=== PATIENT | female | born 1945 | race Two or more races ===

== ENCOUNTER 2021-09-19 17:40 | Inpatient (IN) | payer MEDICARE, OTHER ==
[~2021-09-19] VITALS: Ht 149.9 cm; Wt 72.6 kg
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
--- NOTE | 2021-09-19 18:00 | NUR ---
[employer] UNIT # [id number] AT BEDSIDE
--- NOTE | 2021-09-19 18:05 | NUR ---
URINE COLLECTED AND SENT TO LAB
[2021-09-19] MEDS ORDERED: ACETAMINOPHEN ES 500 MG TABLET PO ONE (18:30)
[2021-09-19] MEDS ORDERED: ACETAMINOPHEN ES 500 MG TABLET ONE (18:47)
[2021-09-19 18:57] LABS: BILIRUBIN,URINE NEGATIVE (NEGATIVE); COLOR,URINE YELLOW (YELLOW); LEUKOCYTE ESTERASE ,URINE SMALL (NEGATIVE); NITRITE, URINE NEGATIVE (NEGATIVE); PH,URINE 5.5 (5.0-8.0); PROTEIN,URINE NEGATIVE (NEGATIVE); UGLUCOSE NEGATIVE (NEGATIVE); UROBILINOGEN,URINE 0.2 EU/dL (0.2)
[2021-09-19 19:03] LABS: CALCIUM, SERUM 8.6 mg/dL (8.5-10.1); CARBON DIOXIDE 26 mmol/L (21-32); CHLORIDE 104 mmol/L (98-107); CREATININE 1.2 mg/dL (0.6-1.3); GLUCOSE 114 mg/dL (74-106); POTASSIUM 3.9 mmol/L (3.5-5.1); SODIUM SERUM 137 mmol/L (136-145); UREA NITROGEN, BLOOD 23 mg/dL (7-18)
[2021-09-19 19:10] LABS: ALANINE AMINOTRANSFERASE 20 U/L (12-78); ALBUMIN 3.4 g/dL (3.4-5.0); ALCOHOL, BLOOD < 3 mg/dL (0-0); ALKALINE PHOSPHATASE 96 U/L (46-116); ASPARTATE AMINOTRANSFERASE 15 U/L (15-37); BILIRUBIN,TOTAL 0.6 mg/dL (0.2-1.0); TOTAL PROTEIN, SERUM 7.6 g/dL (6.4-8.2)
[2021-09-19 19:11] LABS: ACETAMINOPHEN < 0 ug/ml (10-30)
[2021-09-19 19:12] LABS: BACTERIA,URINE 1+ /HPF (None Seen); RBC,URINE 0-2 /HPF (0-2); SQUAMOUS EPITHELIAL CELL,UR Few /HPF (None Seen); WBC,URINE 51-80 /HPF (0-3)
[2021-09-19 19:12] LABS: CREATINE KINASE, TOTAL < 7 U/L (26-192)
[2021-09-19] MEDS ORDERED: CEFTRIAXONE 1 G in IV D5W 50 ML IV ONE (20:00)
[2021-09-19] MEDS ORDERED: ENOXAPARIN SODIUM 60 MG/0.6 ML DISP.SYRIN SQ ONE ×2 (20:00→20:30)
[2021-09-19 20:21] LABS: BASOPHILS # (AUTO) 0.1 K/uL (0.0-0.2); BASOPHILS % (AUTO) 1.3 % (0.0-2.0); EOSINOPHILS % (AUTO) 0.8 % (0.0-6.0); HEMATOCRIT 30 % (33-45); HEMOGLOBIN 9.5 g/dL (11.5-14.8); LYMPHOCYTES # (AUTO) 1.8 K/uL (0.8-4.8); LYMPHOCYTES % (AUTO) 28.6 % (20.0-44.0); MEAN CORPUSCULAR HGB CONC 32 g/dl (31.0-36.0); MEAN CORPUSCULAR VOLUME 82 fL (82-100); MONOCYTES # (AUTO) 0.6 K/uL (0.1-1.30); MONOCYTES % (AUTO) 8.8 % (2.0-12.0); NEUTROPHILS # (AUTO) 3.8 K/uL (1.8-8.9); NEUTROPHILS % (AUTO) 60.5 % (43.0-81.0); PLATELET COUNT (AUTO) 276 K/uL (150-450); RED BLOOD CELL COUNT(AUTO) 3.61 MIL/uL (4.0-5.2); WHITE BLOOD COUNT (AUTO) 6.3 K/uL (4.3-11.0)
--- NOTE | 2021-09-19 20:25 | NUR ---
Jag delgado in [facility] - 09/19/21 at 2108 by LORIE TAMMIE CLIFFORD
--- NOTE | 2021-09-19 20:26 | NUR ---
EPIC PANEL PAGED
[2021-09-19] MEDS ORDERED: CEFTRIAXONE 1 G VIAL ONE (20:30)
--- NOTE | 2021-09-19 20:45 | NUR ---
IV LINE ESTABLISHED AT L WRIST 22G
--- NOTE | 2021-09-19 21:07 | NUR ---
CALLED FELICIANO PAGED PRABHA CLIFFORD
--- NOTE | 2021-09-19 22:04 | NUR ---
CALLED [facility], SPOKE TO ORTHOPEDIC CAST SPECIALIST #[id number], SENDING UNIT TO TAKE REPORT FROM PT
--- NOTE | 2021-09-19 22:12 | NUR ---
RECEIVED CALL FROM [employer], STATES ALREADY SAW PT AND TOOK REPORT EARLIER ON PT ARRIVAL TO ED
--- NOTE | 2021-09-19 23:47 | NUR ---
called lab to f/u on covid swab
--- NOTE | 2021-09-19 23:56 | NUR ---
COVID SWAB SENT TO LAB
--- NOTE | 2021-09-20 00:31 | NUR ---
ROOM ASSIGNMENT: 310-1 TELE
--- NOTE | 2021-09-20 00:43 | NUR ---
PER LAB, 20 MIN FOR COVID RESULT
--- NOTE | 2021-09-20 01:10 | NUR ---
gave report to caitlyn Covarrubias for kaylie
[2021-09-20 01:25] VITALS: BP 133/86
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
--- NOTE | 2021-09-20 01:38 | NUR ---
molded goods inspector trimmer notes Informed MD for new admission orders.
[2021-09-20] MEDS ORDERED: CLON0.5T4 PO (02:22)
[2021-09-20] MEDS ORDERED: ASPI-866 PO (02:22)
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
--- NOTE | 2021-09-20 03:00 | NUR ---
REMINDED INKER AND OPAQUER MD TO PUT ADMIT ORDERS, STILL PENDING
[2021-09-20 04:00] VITALS: BP 124/75
[2021-09-20] MEDS ORDERED: ONDANSETRON HCL/PF 4 MG/2 ML VIAL IVP PRN (04:00)
[2021-09-20] MEDS ORDERED: Z GUARD REMEDY 2 OZ OINT TP PRN (04:00)
[2021-09-20] MEDS ORDERED: ENOXAPARIN SODIUM 40 MG/0.4 ML DISP.SYRIN SQ SCH (05:00)
[2021-09-20] MEDS: CEPHALEXIN MONOHYDRATE 250 MG CAPSULE PO SCH ×3 (05:03→21:02)
[2021-09-20] MEDS: ACETAMINOPHEN 325 MG TABLET PO PRN ×2 (05:03→15:10)
[2021-09-20] MEDS: IV NS 0.9% 1,000 ML IV PRN (05:06)
[2021-09-20] MEDS ORDERED: SENN15TA PO (06:05)
[2021-09-20 06:16] LABS: THYROID STIMULATING HORMONE 0.976 uIU/mL (0.358-3.74)
--- NOTE | 2021-09-20 06:33 | NUR ---
RN NOTE PATIENT GIVEN TYLENOL PRN FOR PAIN ON LEGS
--- NOTE | 2021-09-20 06:36 | NUR ---
RN CLOSING NOTE PATIENT IN BED, SLEEPING. ABLE TO MAKE NEEDS KNOWN. TOLERATING RA. PATIENT REQUESTING CLONAZEPAM AND EXLAX, MED RECON NOT CONVERTED YET. WILL ENDORSE TO DAY SHIFT NURSE. PATIENT DOES NOT HAVE ANY CHANGES IN CONDITION. NO PAIN AT THIS TIME. PATIENT HAS L WRIST 22 G WITH 75 ML/HR NS. SAFETY MEASURES IMPLEMENTED. ALL NEEDS MET AND ATTENDED. ALL ORDERS CARRIED OUT. WILL ENDORSE TO DAY SHIFT NURSE FOR [place]INA.
[2021-09-20] MEDS ORDERED: HYDR28.316 RC (08:19)
[2021-09-20] MEDS ORDERED: DICL100G34 TP (08:19)
[2021-09-20] MEDS ORDERED: SENN-261 PO (08:19)
[2021-09-20] MEDS ORDERED: DICL50TA9 PO (08:19)
[2021-09-20 08:22] VITALS: BP 142/86
[2021-09-20] MEDS: PANTOPRAZOLE 40 MG TABLET.DR PO SCH (08:43)
[2021-09-20] MEDS: ASPIRIN EC 81 MG TABLET.DR PO SCH (08:43)
[2021-09-20] MEDS: ENOXAPARIN SODIUM 40 MG/0.4 ML DISP.SYRIN SQ SCH (08:46)
[2021-09-20 12:00] VITALS: BP 125/70
[2021-09-20] MEDS: METOPROLOL TARTRATE 25 MG TABLET PO SCH ×2 (12:10→20:38)
[2021-09-20] MEDS: MAGNESIUM HYDROXIDE 30 ML UDC PO PRN (15:10)
[2021-09-20 16:03] VITALS: BP 127/70
--- NOTE | 2021-09-20 16:52 | NUR ---
RN OPENING NOTES PATIENT IN BED RESTING, AWAKE. A/O X3. NO S/S OF PAIN NOTED AT THIS TIME. ON ROOM AIR, NO DISTRESS OR SHORTNESS OF BREATH NOTED. IV ON L WRIST #22G. PATIENT HAS AN EXTERNAL DEVIL TENDER WITH CURRENT READING OF SR AND HR OF 82. FALL AND SAFETY MEASURES IN PLACE, BED ALARM ON, BED IN LOW AND LOCK POSITION, CALL LIGHT AND TABLE WITHIN EASY REACH, SIDE RAILS UP X2. WILL CONTINUE TO MONITOR.
--- NOTE | 2021-09-20 19:34 | NUR ---
RN CLOSING NOTES PATIENT IN BED RESTING, AWAKE. A/O X3-4. NO S/S OF PAIN NOTED AT THIS TIME. ON ROOM AIR, NO DISTRESS OR SHORTNESS OF BREATH NOTED. IV ON L WRIST #22G. PATIENT HAS AN EXTERNAL CRESTER WITH CURRENT READING OF SR WITH PAC AND HR OF 70. FALL AND SAFETY MEASURES IN PLACE, BED ALARM ON, BED IN LOW AND LOCK POSITION, CALL LIGHT AND TABLE WITHIN EASY REACH, SIDE RAILS UP X2. WILL ENDORSE TO SOLVENT STATION ATTENDANT.
--- NOTE | 2021-09-20 19:45 | NUR ---
INSPECTOR METAL FABRICATING OPENING NOTES PATIENT AWAKE IN BED, ALERT/ORIENTED X 4, PT ABLE TO MAKE NEEDS KNOWN. PATIENT DENIES PAIN OR DISCOMFORT AT THIS TIME. PT PRIMARILY TANZANIAN SPEAKING BUT STILL ABLE TO UNDERSTAND AND SPEAK CITIZEN OF [place]. PT STABLE ON RA, NO S/S OF DISTRESS OR SOB NOTED, BREATHING EVEN AND UNLABORED. PT ON EXTERNAL PROCESS VALIDATION ENGINEER READING SINUS RHYTHM, HR: 70. IV ACCESS ON LEFT WRIST #22G RUNNING NS @75 ML/HR. SAFETY MEASURES IN PLACE: CALL LIGHT WITHIN REACH, SIDE RAILS UP X 2, BED LOCKED IN LOW POSITION, BED ALARM ON. WILL CONTINUE TO MONITOR PATIENT
[2021-09-20 20:00] VITALS: BP 108/55
[2021-09-20] MEDS: ATORVASTATIN 10 MG TABLET PO SCH (21:02)
[2021-09-21] VITALS: BP 144/79
[2021-09-21] MEDS: IV NS 0.9% 1,000 ML IV PRN (03:16)
[2021-09-21 04:00] VITALS: BP 125/76
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
[2021-09-21] MEDS: CEPHALEXIN MONOHYDRATE 250 MG CAPSULE PO SCH ×3 (05:06→21:24)
[2021-09-21] MEDS: MAGNESIUM HYDROXIDE 30 ML UDC PO PRN (05:07)
[2021-09-21 05:15] LABS: BASOPHILS # (AUTO) 0.1 K/uL (0.0-0.2); BASOPHILS % (AUTO) 1.1 % (0.0-2.0); EOSINOPHILS % (AUTO) 1.4 % (0.0-6.0); HEMATOCRIT 27 % (33-45); HEMOGLOBIN 9.1 g/dL (11.5-14.8); LYMPHOCYTES # (AUTO) 1.7 K/uL (0.8-4.8); LYMPHOCYTES % (AUTO) 31.2 % (20.0-44.0); MEAN CORPUSCULAR HGB CONC 33 g/dl (31.0-36.0); MEAN CORPUSCULAR VOLUME 81 fL (82-100); MONOCYTES # (AUTO) 0.5 K/uL (0.1-1.30); MONOCYTES % (AUTO) 9.4 % (2.0-12.0); NEUTROPHILS % (AUTO) 56.9 % (43.0-81.0); PLATELET COUNT (AUTO) 272 K/uL (150-450); RED BLOOD CELL COUNT(AUTO) 3.36 MIL/uL (4.0-5.2); WHITE BLOOD COUNT (AUTO) 5.3 K/uL (4.3-11.0)
[2021-09-21 05:34] LABS: ALANINE AMINOTRANSFERASE 21 U/L (12-78); ALBUMIN 3.2 g/dL (3.4-5.0); ALKALINE PHOSPHATASE 89 U/L (46-116); ASPARTATE AMINOTRANSFERASE 15 U/L (15-37); BILIRUBIN,TOTAL 0.6 mg/dL (0.2-1.0); CALCIUM, SERUM 8.4 mg/dL (8.5-10.1); CARBON DIOXIDE 27 mmol/L (21-32); CHLORIDE 104 mmol/L (98-107); CREATININE 1.1 mg/dL (0.6-1.3); GLUCOSE 101 mg/dL (74-106); MAGNESIUM 2.3 mg/dL (1.8-2.4); PHOSPHORUS 3.2 mg/dL (2.5-4.9); POTASSIUM 4.1 mmol/L (3.5-5.1); SODIUM SERUM 137 mmol/L (136-145); TOTAL PROTEIN, SERUM 6.8 g/dL (6.4-8.2); UREA NITROGEN, BLOOD 16 mg/dL (7-18)
--- NOTE | 2021-09-21 06:34 | NUR ---
PHONE BANKER CLOSING NOTE PATIENT AWAKE IN ROOM, ALERT/ORIENTED X 3 BUT FORGETFUL AT TIMES, PT ABLE TO MAKE NEEDS KNOWN. NO SIGNIFICANT CHANGES THROUGHOUT SHIFT. PATIENT STATES ABDOMINAL PAIN HAS IMPROVED SINCE GIVEN MILK OF MAGNESIA BUT HASN'T HAD A BOWEL MOVEMENT. PT STABLE ON RA, NO S/S OF DISTRESS OR SOB NOTED, BREATHING EVEN AND UNLABORED. PT ON EXTERNAL OUTSOLE BEVELER READING SINUS RHYTHM, HR: 89. IV ACCESS ON LEFT WRIST #22G RUNNING NS @75 ML/HR. MEDICATIONS GIVEN ORDERED, PT NEEDS MET THROUGHOUT SHIFT. PATIENT STATES SHE HASN'T BEEN GIVEN HER HOME MEDS, WILL ENDORSE TO DAY SHIFT NURSE TO FOLLOW UP WITH MD ABOUT MED RECON. PT ALSO STATES SHE WANTS TO SPEAK TO MD ABOUT PLAN OF CARE AND HOW LONG SHE WILL BE HERE. SAFETY MEASURES IN PLACE: CALL LIGHT WITHIN REACH, SIDE RAILS UP X 2, BED LOCKED IN LOW POSITION, BED ALARM ON. WILL ENDORSE TO DAY SHIFT NURSE FOR CONTINUITY OF CARE
--- NOTE | 2021-09-21 07:43 | NUR ---
SLOOP CAPTAIN OPENING NOTES RECEIVED PATIENT IN BED, AWAKE, A/O X3. PATIENT ON ROOM AIR; BREATHING EVEN AND UNLABORED; NO SOB NOTED. TELE MONITOR WITH A READING OF SR 82. NO COMPLAINS OF PAIN. IV ACCESS AT L WRIST G #22 RUNNING NS @ 75 MLS/HR. SAFETY PRECAUTIONS IN PLACE; BED IN LOW POSITION AND LOCKED, RAILS UP X2, CALL LIGHT WITHIN REACH. WILL CONTINUE TO MONITOR PATIENT.
[2021-09-21 08:14] VITALS: BP 124/60
[2021-09-21] MEDS: ASPIRIN EC 81 MG TABLET.DR PO SCH (08:40)
[2021-09-21] MEDS: PANTOPRAZOLE 40 MG TABLET.DR PO SCH (08:41)
[2021-09-21] MEDS: METOPROLOL TARTRATE 25 MG TABLET PO SCH ×2 (08:43→21:25)
[2021-09-21] MEDS: ENOXAPARIN SODIUM 40 MG/0.4 ML DISP.SYRIN SQ SCH (08:49)
[2021-09-21] MEDS ORDERED: POLYVINYL ALCOHOL 15 ML BOTTLE EACHEYE PRN (11:00)
[2021-09-21] MEDS ORDERED: DOCUSATE SODIUM 100 MG CAPSULE PO SCH (11:00)
[2021-09-21] MEDS: POLYETHYLENE GLYCOL 3350 17 GM POWD.PACK PO SCH (11:00)
[2021-09-21] MEDS ORDERED: clonazePAM 0.5 MG TABLET PO PRN (11:00)
[2021-09-21] MEDS ORDERED: ASPIRIN EC 81 MG TABLET.DR PO SCH (11:00)
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
[2021-09-21] MEDS ORDERED: DOCUSATE SODIUM 100 MG CAPSULE PO PRN (11:23)
[2021-09-21 12:06] VITALS: BP 129/64
--- NOTE | 2021-09-21 13:16 | NUR ---
DANCING MASTER NOTES DVT PUMPS ORDERED. PATIENT REFUSES TO PUT THEM ON. PATIENT IN AND OUT OF BED.
[2021-09-21 16:10] VITALS: BP 124/57
--- NOTE | 2021-09-21 18:45 | NUR ---
BEAD CUTTER CLOSING NOTES PATIENT REMAINS IN BED, AWAKE, A/O X3. PATIENT ON ROOM AIR; BREATHING EVEN AND UNLABORED; NO SOB NOTED. TELE MONITOR WITH A READING OF SR 78 WITH PAC. NO COMPLAINS OF PAIN DURING SHIFT. IV ACCESS AT L WRIST G #22 RUNNING NS @ 75 MLS/HR. ALL NEEDS ATTENDED DURING THE DAY. SAFETY PRECAUTIONS IN PLACE; BED IN LOW POSITION AND LOCKED, RAILS UP X2, CALL LIGHT WITHIN REACH. WILL ENDORSE TO DEPUTY CHIEF EXECUTIVE NURSE FOR [place].
--- NOTE | 2021-09-21 19:15 | NUR ---
TELE/RN OPENING NOTES RECEIVED PT AWAKE, AMBULATING IN ROOM USING CANE, WITH SLOW STEADY GAIT. A/OX3, SPEAKS CYMRO AND SPEAKS SURINAMESE WELL. SHE DENIES ANY PAIN AT THIS TIME. RESPIRATIONS EVEN/UNLABORED. IV SITE: L-WRIST #22G INTACT/PATENT/FLUSHES WELL. CONNECTED TO TELE MONITOR, READING SR, HR 82. PT IN NO ACUTE DISTRESS. SAFETY MEASURES IN PLACE, BED IN LOWEST LOCKED POSITION, S/R UPX2, CALL LIGHT WITHIN REACH. WILL CONT TO MONITOR.
[2021-09-21 20:00] VITALS: BP_SYST 113; BP_SYST 129; BP_DIAS 54; BP_DIAS 68
[2021-09-21] MEDS: ACETAMINOPHEN 325 MG TABLET PO PRN (21:24)
[2021-09-21] MEDS: ATORVASTATIN 10 MG TABLET PO SCH (21:25)
[2021-09-21] MEDS ORDERED: TRAZODONE 50 MG TABLET PO SCH (22:00)
[2021-09-22] VITALS: BP 111/64
[2021-09-22 04:00] VITALS: BP 105/46
[2021-09-22] MEDS: CEPHALEXIN MONOHYDRATE 250 MG CAPSULE PO SCH ×2 (05:31→12:17)
--- NOTE | 2021-09-22 06:48 | NUR ---
RN NOTE INSERTED IV ACCESS TO L-FA #18G X1 WITH GOOD BLOOD RETURN AND PT NATI IT WELL.
--- NOTE | 2021-09-22 06:53 | NUR ---
TELE/RN CLOSING NOTE PT AWAKE IN BED, ABLE TO VERBALIZE NEEDS, WITH EASY FORGETFULNESS. REORIENTATION PROVIDED. PT DENIES PAIN AT THIS TIME. NO SOB NOTED. TELE MONITOR READING SR, HR 72. PT IN NO ACUTE DISTRESS. SAFETY MEASURES MAINTAINED.
[2021-09-22] MEDS: PANTOPRAZOLE 40 MG TABLET.DR PO SCH (07:26)
--- NOTE | 2021-09-22 07:31 | NUR ---
RN OPENING NOTES Patient seen comfortably lying in bed, no apparent distress noted, respirations even and unlabored, no SOB, denies any pain or discomfort at this time, no grimacing. Call light left within reach, safety precautions in place, brakes locked, side rails up X 2, will monitor closely for any changes.
[2021-09-22 08:00] VITALS: BP 114/53
[2021-09-22] MEDS: ASPIRIN EC 81 MG TABLET.DR PO SCH (08:24)
[2021-09-22 08:25] VITALS: BP 114/53
[2021-09-22] MEDS: METOPROLOL TARTRATE 25 MG TABLET PO SCH (08:25)
[2021-09-22] MEDS: POLYETHYLENE GLYCOL 3350 17 GM POWD.PACK PO SCH (08:25)
[2021-09-22] MEDS: MAGNESIUM HYDROXIDE 30 ML UDC PO PRN (12:16)
--- NOTE | 2021-09-22 13:11 | NUR ---
Patient has an order for computed tomography coronary angiography, patient preferred not to do the procedure, explained risks and benefits to patient thrice, however patient still refuse, hospitalist aware.
[2021-09-22] MEDS: ENOXAPARIN SODIUM 40 MG/0.4 ML DISP.SYRIN SQ SCH (13:13)
--- NOTE | 2021-09-22 14:10 | NUR ---
Patient seen comfortably lying in bed, denies any pain or discomfort at this time, no dizziness, no palpitations, no apparent distress noted. Patient stated that she wants to leave the hospital and go home, explained risks and benefits to patient thrice, however patient still prefers to leave. Patient alert, oriented X 3, able to make needs known and can follow commands. Instructed patient to follow up with her primary MD and to go in ER in case of emergency or call 911, patient verbalized understanding. Patient was noted to have right arm redness, discolorations in bilateral eyebrows and multiple scabs, patient preferred not to have photos taken, explained risks, benefits and that it is a part of hospital protocol, patient still strongly refused, respected patients wishes. RN assisted patient to the hospital parking lot, nephmanish Singh picked up patient, peripheral IV lines and patients identification wristband was removed. Surgical mask given to patient, verbalized gratitude. MD, charge nurse and nursing railroad car cleaning supervisor made aware of the situation. Patient left hospital at 1410, stable condition.
--- NOTE | 2021-09-22 14:10 | NUR ---
Patient seen comfortably lying in bed, denies any pain or discomfort at this time, no dizziness, no palpitations, no apparent distress noted. Patient stated that she wants to leave the hospital and go home, explained risks and benefits to patient thrice, however patient still prefers to leave. Patient alert, oriented X 3, able to make needs known and can follow commands. Patient signed AMA form and inventory list, all belongings taken by patient, exit care paperworks handed to patient. Instructed patient to follow up with her primary MD and to go in ER in case of emergency or call 911, patient verbalized understanding. Patient was noted to have right arm redness, discolorations in bilateral eyebrows and multiple scabs, patient preferred not to have photos taken, explained risks, benefits and that it is a part of hospital protocol, patient still strongly refused, respected patients wishes. RN assisted patient to the hospital parking lot, gonzalo Singh picked up patient, peripheral IV lines and patients identification wristband was removed. Surgical mask given to patient, verbalized gratitude. MD, charge nurse and nursing vocational rehabilitation supervisor made aware of the situation. Patient left hospital at 1410, stable condition.
== END 2021-09-22 14:15 | disposition left against medical advice (07) | DRG 280 ==
LOC: ER 17:43 → TELE 09-20 00:51
PROVIDERS: ADMIT Nurse Practitioner Acute Care; ATTEND Nurse Practitioner Acute Care
DX: I21.A1 Myocardial infarction type 2 (principal); I63.81 Other cerebral infarction due to occlusion or stenosis of small artery; N39.0 Urinary tract infection, site not specified; T76.91XA Unspecified adult maltreatment, suspected, initial encounter; D63.8 Anemia in other chronic diseases classified elsewhere; E86.0 Dehydration; Z20.822 Contact with and (suspected) exposure to COVID-19; F41.9 Anxiety disorder, unspecified; G89.29 Other chronic pain; I67.2 Cerebral atherosclerosis; M85.80 Other specified disorders of bone density and structure, unspecified site
CPT/HCPCS: 36415; 70450-TC; 71045-TC; 72125-TC; 80048-TC; 80053-TC; 80061-TC; 80076-TC; 81001; 82550-TC; 83540-TC; 83735-TC; 84100-TC; 84443-TC; 84484-TC; 85025-TC; 87081-TC; 87086-TC; 93307-TC; 97112-TC; 97116-TC; 97530-TC; G0378; G0480; J0696; J1650; J7030; J7060

== ENCOUNTER 2022-12-23 07:42 | Inpatient (IN) | payer MEDICARE, OTHER ==
[~2022-12-23] VITALS: Ht 139.7 cm; Wt 62.1 kg
[~2022-12-23 07:42] MED LIST: ASPI-866 PO; CLON0.5T4 PO; DICL100G34 TP; DICL50TA9 PO; HYDR28.316 RC; SENN-261 PO
--- NOTE | 2022-12-23 08:00 | NUR ---
BIBSELF C/O ABDOMINAL PAIN 8/10 SINCE LAST NIGHT , PATIENT STATED THAT SHE COULDNT SLEEP AND ALSO COMPLAINS OF ARTHRITIS. NO SIGNS AND SYMPTOMS OF DISTRESS. VITALS ARE STABLE. MD MADE AWARE , CARRIED OUT NURSING ORDERS. PLAN OF CARE CONTINUES.
--- NOTE | 2022-12-23 08:04 | NUR ---
URINE SAMPLE OBTAINED SENT TO LAB
--- NOTE | 2022-12-23 08:05 | NUR ---
PATIENT TAKEN TO CT BY DRIVE AWAY DRIVER VIA GURNEY.
[2022-12-23] MEDS ORDERED: MORPHINE SULFATE INJ 2 MG/ML DISP.SYRIN ONE (08:25)
[2022-12-23] MEDS ORDERED: FAMOTIDINE/PF INJ 20 MG/2 ML VIAL IV ONE ×2 (08:25→08:30)
[2022-12-23] MEDS ORDERED: ONDANSETRON HCL/PF 4 MG/2 ML VIAL ONE (08:25)
[2022-12-23] MEDS ORDERED: MORPHINE SULFATE INJ 2 MG/ML DISP.SYRIN IV ONE (08:30)
[2022-12-23] MEDS ORDERED: ONDANSETRON HCL/PF 4 MG/2 ML VIAL IVP ONE (08:30)
--- NOTE | 2022-12-23 08:30 | NUR ---
IV inserted rigth forearm g20 blood drawn sent to lab
[2022-12-23 08:42] LABS: BASOPHILS # (AUTO) 0.1 K/uL (0.0-0.2); EOSINOPHILS % (AUTO) 0.7 % (0.0-6.0); HEMATOCRIT 27 % (33-45); HEMOGLOBIN 8.3 g/dL (11.5-14.8); LYMPHOCYTES # (AUTO) 1.7 K/uL (0.8-4.8); LYMPHOCYTES % (AUTO) 28.5 % (20.0-44.0); MEAN CORPUSCULAR HGB CONC 31 g/dl (31.0-36.0); MEAN CORPUSCULAR VOLUME 83 fL (82-100); MONOCYTES # (AUTO) 0.6 K/uL (0.1-1.30); MONOCYTES % (AUTO) 9.8 % (2.0-12.0); NEUTROPHILS # (AUTO) 3.6 K/uL (1.8-8.9); PLATELET COUNT (AUTO) 253 K/uL (150-450); RED BLOOD CELL COUNT(AUTO) 3.25 MIL/uL (4.0-5.2); WHITE BLOOD COUNT (AUTO) 6.1 K/uL (4.3-11.0)
[2022-12-23 08:49] LABS: BILIRUBIN,URINE NEGATIVE (NEGATIVE); COLOR,URINE YELLOW (YELLOW); LEUKOCYTE ESTERASE ,URINE TRACE (NEGATIVE); NITRITE, URINE NEGATIVE (NEGATIVE); PROTEIN,URINE NEGATIVE (NEGATIVE); UGLUCOSE NEGATIVE (NEGATIVE); UROBILINOGEN,URINE 0.2 EU/dL (0.2)
[2022-12-23 09:05] LABS: BACTERIA,URINE Few /HPF (None Seen); RBC,URINE 0-2 /HPF (0-2); SQUAMOUS EPITHELIAL CELL,UR Few /HPF (None Seen)
--- NOTE | 2022-12-23 09:16 | NUR ---
PATIENT SEEN CLAIMS NO MORE ABDOMINAL PAIN NO NAUSEA NOR VOMITING NOT IN DISTRESS
[2022-12-23 09:17] LABS: CALCIUM, SERUM 9.1 mg/dL (8.5-10.1); CREATININE 1.3 mg/dL (0.6-1.3); POTASSIUM 4.8 mmol/L (3.5-5.1)
[2022-12-23 09:22] LABS: ALBUMIN 3.7 g/dL (3.4-5.0); BILIRUBIN,DIRECT 0.2 mg/dL (0.0-0.2); BILIRUBIN,TOTAL 0.6 mg/dL (0.2-1.0); TOTAL PROTEIN, SERUM 7.3 g/dL (6.4-8.2)
--- NOTE | 2022-12-23 09:53 | NUR ---
EMD AT BEDSIDE EXPLAINED CONDITION TO PATIENT AND MADE AWARE OF ADDITIONAL CONTRAST GI CT SCAN PROCEDURES
[2022-12-23] MEDS ORDERED: DIATR MEGLU/DIATRIZOATE SODIUM 120 ML BOTTLE (GASTROGRAPHIN) ONE (10:14)
--- NOTE | 2022-12-23 10:41 | NUR ---
PATIENT BROUGHT TO XR
--- NOTE | 2022-12-23 11:30 | NUR ---
PAGED GENERAL SURGERY
--- NOTE | 2022-12-23 12:40 | NUR ---
PATIENT ON HER LEFT SIDE LYING. CLAIMS NO ABD PAIN, NOT IN DISTRESS AOX4. HAVING HER LUNCH
--- NOTE | 2022-12-23 13:03 | NUR ---
COVID SWAB TAKEN , SENT TO LAB
--- NOTE | 2022-12-23 13:22 | NUR ---
ROOM 106, ADMITTING AWARE
--- NOTE | 2022-12-23 13:25 | NUR ---
PATIENT AOX4 CAN AMBULATE HERSELF TO RESTROOM, STEADY GATE WITH THE USE OF CANE.
--- NOTE | 2022-12-23 13:32 | NUR ---
PATIENT FOR TRANSFER TO TELE REPORT GIVEN TO FLOOR NURSE FOR CONTINUE OF CARE
[2022-12-23] MEDS ORDERED: PANT40TA49 PO (13:38)
[2022-12-23] MEDS ORDERED: FOLI0.4T6 PO (13:38)
[2022-12-23] MEDS ORDERED: ERGO500093 PO (13:38)
[2022-12-23] MEDS ORDERED: FLUO10CA29 PO (13:38)
[2022-12-23] MEDS ORDERED: LINA72CA PO (13:38)
[2022-12-23] MEDS ORDERED: MULT-447 PO (13:38)
[2022-12-23] MEDS ORDERED: BEPO10DR EACHEYE (13:39)
[2022-12-23] MEDS ORDERED: NEOM10DR11 EACH EAR (13:39)
[2022-12-23] MEDS ORDERED: ACET-868 PO (13:40)
--- NOTE | 2022-12-23 15:01 | NUR ---
rn note pt is alert and oriented x4. pt is montserratian spekaing. pt on room air tolerating at 100%.pt has l forearm 20 guage. iv intact, patent and flushing well. all safety measures in place. call light within reach, bed locked at lowest position
[2022-12-23] MEDS ORDERED: ONDANSETRON HCL/PF 4 MG/2 ML VIAL IVP PRN (16:30)
[2022-12-23] MEDS ORDERED: MAGNESIUM HYDROXIDE 30 ML UDC PO PRN (16:30)
[2022-12-23] MEDS ORDERED: Z GUARD REMEDY 4 OZ OINT TP PRN (16:30)
[2022-12-23] MEDS ORDERED: ACETAMINOPHEN 325 MG TABLET PO PRN (16:30)
[2022-12-23] MEDS ORDERED: MAG HYDROX/AL HYDROX/SIMETH 30 ML UDC PO PRN (16:30)
[2022-12-23] MEDS ORDERED: HYDROCORTISONE CR 30 GM TUBE RC PRN (16:30)
[2022-12-23] MEDS: ACETAMINOPHEN 325 MG TABLET PO PRN (18:34)
--- NOTE | 2022-12-23 18:55 | NUR ---
RN NOTE PT HAD ORDERED DOSE OF 650 MG TYLENOL. PT WANTED ONLY 1 325 MG TABLET. PROVIDED EDUCATION ON TAKING BOTH.PT REFUSED 2ND TYLENOL ONLY GAVE 1 325 MG TABLET. DISCARDED 2ND TABLET IN PT ROOM SHARPS CONTAINER.
--- NOTE | 2022-12-23 19:27 | NUR ---
RESIDENT CARE TECHNICIAN CLOSING NOTE PT ALERT AND ORIENTED X4. PT ON TELE MONITOR. PT IS ON ROOM AIR TOLERATING AT 95%. NO PAIN OR DISCOMFORT. PT HAS IV ACCESS. IV PATENT, INTACT AND FLUSHING WELL. PT IS AMBULATORY WITH CANE. ALL SAFETY MEASURES IN PLACE. CALL LIGHT WITHIN REACH.BED LOCKED AT LOWEST POSITION. SIDE RAILS UP X2.ENDORSED TO PHYS ASSISTANT RN FOR CONTUITY OF CARE
--- NOTE | 2022-12-23 19:40 | NUR ---
CALL CENTER SUPPORT REPRESENTATIVE OPENING NOTE RECEIVED PT AWAKE IN BED. A/O X4 AND ABLE TO MAKE NEEDS KNOWN. PT STABLE ON ROOM AIR. NO SOB OR S/S OF RESPIRATORY DISTRESS. BREATHING EVEN AND UNLABORED. ON EXTERNAL MANHOLE STRIPPER READING SR 67 BPM. IV ACCESS RFA 20G, INTACT AND PATENT. SAFETY PRECAUTIONS IN PLACE. BED IN LOWEST LOCKED POSITION, HOB ELEVATED, SIDE RAILS UP X2, AND CALL LIGHT AND TABLE WITHIN REACH. ALL NEEDS MET AT THIS TIME.
[2022-12-23 19:45] VITALS: BP 115/57
[2022-12-23 21:00] VITALS: BP 114/58
[2022-12-23] MEDS: IV NS 0.9% 1,000 ML IV PRN (21:04)
[2022-12-23] MEDS: LINZESS 72 MCG PO SCH (21:54)
[2022-12-23] MEDS: clonazePAM 0.5 MG TABLET PO PRN (21:55)
--- NOTE | 2022-12-23 21:55 | NUR ---
RN NOTE PT COMPLAINED OF ANXIETY AND REQUESTED CLONAZEPAM. ADMINISTERED CLONAZEPAM 0.25 MG FOR ANXIETY ORDERED. WASTED 0.25 MG IN PHARM WASTE WITH CHARGE NURSE YIFAN WITNESS. MADE COMFORTABLE IN BED. ALL NEEDS MET AT THIS TIME.
[2022-12-24 01:00] VITALS: BP 131/52
[2022-12-24 05:00] VITALS: BP 123/68
[2022-12-24 06:05] LABS: BASOPHILS # (AUTO) 0.1 K/uL (0.0-0.2); BASOPHILS % (AUTO) 1.3 % (0.0-2.0); EOSINOPHILS % (AUTO) 2.1 % (0.0-6.0); HEMATOCRIT 25 % (33-45); HEMOGLOBIN 8.1 g/dL (11.5-14.8); LYMPHOCYTES # (AUTO) 2.4 K/uL (0.8-4.8); LYMPHOCYTES % (AUTO) 43.3 % (20.0-44.0); MEAN CORPUSCULAR HGB CONC 33 g/dl (31.0-36.0); MEAN CORPUSCULAR VOLUME 79 fL (82-100); MONOCYTES # (AUTO) 0.5 K/uL (0.1-1.30); MONOCYTES % (AUTO) 9.7 % (2.0-12.0); NEUTROPHILS # (AUTO) 2.4 K/uL (1.8-8.9); NEUTROPHILS % (AUTO) 43.6 % (43.0-81.0); PLATELET COUNT (AUTO) 254 K/uL (150-450); RED BLOOD CELL COUNT(AUTO) 3.12 MIL/uL (4.0-5.2); WHITE BLOOD COUNT (AUTO) 5.6 K/uL (4.3-11.0)
[2022-12-24 06:06] LABS: CALCIUM, SERUM 8.9 mg/dL (8.5-10.1); CREATININE 1.2 mg/dL (0.6-1.3); MAGNESIUM 2.1 mg/dL (1.8-2.4); PHOSPHORUS 4.3 mg/dL (2.5-4.9); POTASSIUM 4.6 mmol/L (3.5-5.1)
--- NOTE | 2022-12-24 06:37 | NUR ---
TABLET REPAIR CLOSING NOTE PT AWAKE IN BED. A/O X4 AND ABLE TO MAKE NEEDS KNOWN. PT STABLE ON ROOM AIR. NO SOB OR S/S OF RESPIRATORY DISTRESS. BREATHING EVEN AND UNLABORED. ON EXTERNAL NAIL TECHNICIAN READING SR 70 BPM. IV ACCESS RFA 20G, INTACT AND PATENT, RUNNING NS @ 75 ML/HR. ALL DUE MEDS GIVEN ORDERED. SAFETY PRECAUTIONS IN PLACE AT ALL TIMES. BED IN LOWEST LOCKED POSITION, HOB ELEVATED, SIDE RAILS UP X2, AND CALL LIGHT AND TABLE WITHIN REACH. ALL NEEDS MET AT THIS TIME AND WILL ENDORSE TO ONCOMING NURSE FOR [place]INA.
--- NOTE | 2022-12-24 07:45 | NUR ---
COMPUTATIONAL LINGUIST OPENING NOTE RECEIVED PT AWAKE IN BED. A/O X4 AND ABLE TO MAKE NEEDS KNOWN. PT STABLE ON ROOM AIR. NO SOB OR S/S OF RESPIRATORY DISTRESS. BREATHING EVEN AND NONLABORED. ON EXTERNAL FRETTED STRING INSTRUMENT REPAIRER READING SR 68 BPM. IV ACCESS RFA 20G, INTACT AND PATENT, RUNNING NS @75ML/HR. SAFETY PRECAUTIONS IN PLACE. BED IN LOWEST LOCKED POSITION, HOB ELEVATED, SIDE RAILS UP X2, AND CALL LIGHT AND TABLE WITHIN REACH. ALL NEEDS MET AT THIS TIME.
[2022-12-24] MEDS: PANTOPRAZOLE 40 MG TABLET.DR PO SCH (08:23)
[2022-12-24] MEDS: Fluoxetine 10 mg capsule PO SCH (08:23)
[2022-12-24] MEDS: LINZESS 72 MCG PO SCH ×2 (08:39→22:00)
[2022-12-24] MEDS: ACETAMINOPHEN 325 MG TABLET PO PRN ×2 (08:53→18:39)
[2022-12-24 09:00] VITALS: BP 129/65
--- NOTE | 2022-12-24 09:00 | NUR ---
RN NOTE PT REQUESTED DOSE OF 650 MG TYLENOL. PT WANTED ONLY 1 325 MG TABLET. PROVIDED EDUCATION ON TAKING BOTH.PT REFUSED 2ND TYLENOL ONLY GAVE 1 325 MG TABLET. DISCARDED 2ND TABLET IN PT ROOM SHARPS CONTAINER. WILL CONTINUE TO MONITOR PATIENT.
--- NOTE | 2022-12-24 10:01 | NUR ---
WOUND CARE CONSULT: PT HAS VERY SHORT TOENAIL ON LEFT GREAT TOE. PT STATES THAT SHE CUT HER TOENAIL AND HAD SOME BLEEDING AT HOME. PT STATES HAS TENDERNESS. DPM CONSULT CALLED TO DR BELCZYK. CHAVEZ IN AGREEMENT WITH PLAN OF CARE. CURRENT SARAH SCORE IS 19.
[2022-12-24] MEDS: DICLOFENAC SODIUM 1% TP PRN (10:30)
--- NOTE | 2022-12-24 10:30 | NUR ---
RN NOTE RECEIVED CRITICAL LAB FOR TROPONIN OF 57. DR VILLELA NOTIFIED. NO NEW ORDER.
[2022-12-24 13:00] VITALS: BP 132/81
[2022-12-24 17:00] VITALS: BP 133/80
[2022-12-24] MEDS: IV NS 0.9% 1,000 ML IV PRN (17:00)
--- NOTE | 2022-12-24 18:35 | NUR ---
CLAY PLANT TREATER CLOSING NOTE PT AWAKE IN BED. A/O X4 AND ABLE TO MAKE NEEDS KNOWN. PT STABLE ON ROOM AIR. NO SOB OR S/S OF RESPIRATORY DISTRESS. BREATHING EVEN AND NON LABORED. ON EXTERNAL ACADEMIC SUPPORT COORDINATOR READING SR 76 BPM. IV ACCESS RFA 20G, INTACT AND PATENT, RUNNING NS @ 75 ML/HR. ALL DUE MEDS GIVEN ORDERED. DRESSING CHANGED ON HER LEFT TOE. KEPT PT C/D/I. SAFETY PRECAUTIONS IN PLACE AT ALL TIMES. BED IN LOWEST LOCKED POSITION, HOB ELEVATED, SIDE RAILS UP X2, AND CALL LIGHT AND TABLE WITHIN REACH. ALL NEEDS MET AT THIS TIME AND WILL ENDORSE TO ONCOMING NURSE FOR [place].
--- NOTE | 2022-12-24 19:40 | NUR ---
TELE1 RN NOTES RECEIVED SITTING ON BEDSIDE CHAIR,A/O X4,PERUVIAN SPEAKING.BREATHING REGULAR,NOT IN ANY FORM DISTRESS.SALINE LOCK RIGHT FOREARM INTACT AND PATENT.PRESENT IVF ON STANDBY.ASSIST WITH ADL'S.ATE 100% ON HER DINNER FOOD.CALL LIGHT IN REACH,NEEDS ANTICIPATED.
[2022-12-24 20:00] VITALS: BP 130/70
[2022-12-24] MEDS: MORPHINE SULFATE INJ 2 MG/ML DISP.SYRIN IV PRN (20:13)
--- NOTE | 2022-12-24 20:13 | NUR ---
DIRECTOR PUBLIC NOTES C/O MID LOWER ABDOMINAL PAIN 8/10 ON PAIN SCALE,MEDICATED WITH MORPHINE 2MG IV ORDERED.FALL PRECAUTION OBSERVED,BED ALARM
--- NOTE | 2022-12-24 21:00 | NUR ---
DEICER REPAIRER NOTES AWAKE,COMMENTED IM OKAY NOW,NO MORE PAIN,MAYBE I CAN WALK. WALK WITH YO IN THE HALLWAYS,ACCOMPANIED BY [facility]CADA.
--- NOTE | 2022-12-24 22:00 | NUR ---
DRY MAN NOTE REFUSED DOSE OF LINZESS.COMMENTED SHE ALREADY HAD BOWEL MOVEMENT 3 TIMES TODAY.
[2022-12-24] MEDS: clonazePAM 0.5 MG TABLET PO PRN (22:43)
--- NOTE | 2022-12-24 22:43 | NUR ---
MANAGER ADMINISTRATIVE NOTES READY TO SLEEP,SHE ASKED HER KLONOPIN 0.25 MG PO ORDERED.
[2022-12-25] VITALS: BP 127/78
[2022-12-25 04:00] VITALS: BP 136/73
--- NOTE | 2022-12-25 06:20 | NUR ---
MERCHANDISE DISPLAYER NOTES SLEEP WITH INTERVALS,PREFERS MORPHINE IV FOR PAIN MANAGEMENT NO FALL,NO INJURY.CALL LIGHT IN REACH,NEEDS ATTENDED.IN NO ACUTE DISTRESS.WILL ENDORSE TO DAY NURSE FOR [place].
--- NOTE | 2022-12-25 07:49 | NUR ---
WASTE EXAMINER OPENING NOTE PT AWAKE IN BED. A/O X4. PT STABLE ON ROOM AIR WITH NO SOB OR S/S OF RESPIRATORY DISTRESS. BREATHING EVEN AND NON LABORED. IV ACCESS RFA 20G, INTACT AND PATENT, RUNNING NS @ 75 ML/HR. ALL SAFETY PRECAUTIONS IN PLACE. BED IN LOWEST LOCKED POSITION, HOB ELEVATED, SIDE RAILS UP X2, AND CALL LIGHT AND TABLE WITHIN REACH. WILL CONTINUE TO MONITOR.
[2022-12-25 08:00] VITALS: BP 113/58
[2022-12-25] MEDS: Fluoxetine 10 mg capsule PO SCH (09:01)
[2022-12-25] MEDS: PANTOPRAZOLE 40 MG TABLET.DR PO SCH (09:01)
[2022-12-25] MEDS: ACETAMINOPHEN 325 MG TABLET PO PRN (09:29)
--- NOTE | 2022-12-25 09:53 | NUR ---
RN NOTES PATIENT STATED THAT SHE TAKES FLUOXETINE ONCE A DAY AT NOON AND CLONAZEPAM 0.5MG BID IN AM AND PM. REQUESTED CHANGE WITH PHARMACY.
[2022-12-25] MEDS: DICLOFENAC SODIUM 1% TP PRN (10:17)
[2022-12-25 12:00] VITALS: BP 114/62
--- NOTE | 2022-12-25 15:52 | NUR ---
RN NOTE PATIENT CONSENT FOR EGD AND COLONOSCOPY COMPLETED.
[2022-12-25 16:00] VITALS: BP 113/58
[2022-12-25] MEDS ORDERED: PEG 3350/NA SULF,BICARB,CL/KCL 4,000 ML BOTTLE PO ONE (16:00)
--- NOTE | 2022-12-25 16:19 | NUR ---
RN NOTE PATIENT COMPLAINS OF CONSTIPATION BUT REFUSES MEDS. STATES SHE WILL ONLY TAKE LINZESS.
[2022-12-25] MEDS: clonazePAM 0.5 MG TABLET PO SCH (16:38)
--- NOTE | 2022-12-25 19:56 | NUR ---
CDL PROGRAM COORDINATOR CLOSING NOTE PT AWAKE. A/O X4. PT STABLE ON ROOM AIR WITH NO SOB OR S/S OF RESPIRATORY DISTRESS. BREATHING EVEN AND NON LABORED. IV ACCESS RFA 20G, INTACT AND PATENT, RUNNING NS @ 75 ML/HR INTERMEDIATELY. ALL SAFETY PRECAUTIONS IN PLACE. BED IN LOWEST LOCKED POSITION, HOB ELEVATED, SIDE RAILS UP X2, AND CALL LIGHT AND TABLE WITHIN REACH. WILL ENDORSE TO ONCOMING SHIFT FOR [place].
[2022-12-25 20:00] VITALS: BP 114/75
--- NOTE | 2022-12-25 20:00 | NUR ---
HOP SEPARATOR OPENING NOTE PATIENT AWAKE IN ROOM, ALERT/ORIENTED X 4, PT ABLE TO MAKE NEEDS KNOWN. PATIENT STABLE ON RA, NO S/S OF DISTRESS OR SOB NOTED, BREATHING EVEN AND UNLABORED. PATIENT ON EXTERNAL VICE PRESIDENT DIGITAL STRATEGIST READING SINUS RHYTHM, HR: 76. IV ACCESS ON RFA #20G INTACT AND SALINE LOCKED, PATIENT REFUSING TO BE CONNECTED TO IVF AT THIS TIME. PATIENT DRINKING GOLYTELY, PER DAYSHIFT RN PATIENT TO HAVE EGD & COLONOSCOPY ON TUESDAY, TO BE CLEAR LIQUID DIET IN AM. PATIENT AMBULATORY WITH SBA AND CANE. SAFETY MEASURES IN PLACE: CALL LIGHT WITHIN REACH, SIDE RAILS UP X 2, BED LOCKED IN LOWEST POSITION, BED ALARM ON. WILL CONTINUE TO MONITOR PATIENT
[2022-12-25] MEDS: LINZESS 72 MCG PO SCH (21:05)
[2022-12-25] MEDS: clonazePAM 0.5 MG TABLET PO PRN (21:43)
--- NOTE | 2022-12-25 21:43 | NUR ---
CLINICAL REHABILITATION COORDINATOR NOTE PATIENT RESTLESS AND ANXIOUS, REQUESTING KLONOPIN. PRN KLONOPIN 0.25 MG PO GIVEN ORDERED. WILL CONTINUE TO MONITOR
[2022-12-26] VITALS: BP 128/68
[2022-12-26 00:23] VITALS: BP 128/68
[2022-12-26] MEDS: MORPHINE SULFATE INJ 2 MG/ML DISP.SYRIN IV PRN (01:28)
--- NOTE | 2022-12-26 01:38 | NUR ---
BUILDING ENGINEER NOTE PATIENT C/O 8/10 ABDOMINAL PAIN. PRN MORPHINE 2 MG IV Q4H GIVEN ORDERED. WILL CONTINUE TO MONITOR PATIENT
[2022-12-26 04:00] VITALS: BP 132/73
--- NOTE | 2022-12-26 06:34 | NUR ---
MEDICAL MALPRACTICE PARALEGAL CLOSING NOTE PATIENT AWAKE IN ROOM, ALERT/ORIENTED X 4, PT ABLE TO MAKE NEEDS KNOWN. PATIENT STABLE ON RA, NO S/S OF DISTRESS OR SOB NOTED, BREATHING EVEN AND UNLABORED. PATIENT ON EXTERNAL ELEMENTARY [employer] TEACHER READING SINUS RHYTHM WITH PVC'S AND ELEVATED T WAVE, HR: 88. IV ACCESS ON RFA #20G INTACT AND SALINE LOCKED, PATIENT REFUSING TO BE CONNECTED TO IVF. PATIENT DRINKING GOLYTELY, THIS SHIFT, PT TO HAVE EGD & COLONOSCOPY ON TUESDAY, DIET CHANGED TO CLEAR LIQUID DIET IN AM, TO BE NPO POST MIDNIGHT. PATIENT AMBULATORY WITH SBA AND CANE. MEDICATIONS GIVEN ORDERED, PT NEEDS MET THROUGHOUT SHIFT. SAFETY MEASURES IN PLACE: CALL LIGHT WITHIN REACH, SIDE RAILS UP X 2, BED LOCKED IN LOWEST POSITION, BED ALARM ON. WILL ENDORSE TO DAYSHIFT RN FOR CONTINUITY OF CARE
[2022-12-26] MEDS: PANTOPRAZOLE 40 MG TABLET.DR PO SCH (07:24)
--- NOTE | 2022-12-26 07:33 | NUR ---
OPENING NOTE PATIENT AWAKE IN ROOM, ALERT/ORIENTED X 4, PT ABLE TO MAKE NEEDS KNOWN. PATIENT STABLE ON RA, NO S/S OF DISTRESS OR SOB NOTED, BREATHING EVEN AND UNLABORED. PATIENT ON EXTERNAL IRRIGATION SYSTEM OPERATOR READING SINUS RHYTHM, HR: 76. IV ACCESS ON RFA #20G INTACT AND SALINE LOCKED, SAFETY MEASURES IN PLACE: CALL LIGHT WITHIN REACH, SIDE RAILS UP X 2, BED LOCKED IN LOWEST POSITION, BED ALARM ON. WILL CONTINUE TO MONITOR PATIENT
[2022-12-26 08:00] VITALS: BP 117/81
[2022-12-26] MEDS: clonazePAM 0.5 MG TABLET PO SCH ×2 (08:15→16:35)
[2022-12-26] MEDS: Fluoxetine 10 mg capsule PO SCH (11:16)
[2022-12-26 16:00] VITALS: BP 139/66
[2022-12-26] MEDS ORDERED: PEG 3350/NA SULF,BICARB,CL/KCL 4,000 ML BOTTLE PO ONE (17:00)
[2022-12-26] MEDS: ACETAMINOPHEN 325 MG TABLET PO PRN (17:08)
--- NOTE | 2022-12-26 18:43 | NUR ---
PATIENT IS AWAKE, ALERT, ORIENTEDX3, NO SIGNS OF IN DISTRESS, UNLABORED BREATHING ON ROOM AIR, SAFETY MEASURES APPLIED, BED IN LOW POSITION LOCKED, SIDE RAILS UPX3, CALL LIGHT WITHIN REACH.
--- NOTE | 2022-12-26 21:00 | NUR ---
RISK COMPLIANCE ANALYST OPENING NOTES RECEIVED PATIENT IN BED, ON MODERATE HIGH BACK REST POSITION. ON ROOM AIR AND TOLERATING WELL. A/O X 4 FRISIAN SPEAKING BUT ABLE TO UNDERSTAND FRENCH. PATIENT AMBULATE WITH CANE AND ASSISTANCE. CONTINENT AND ABLE TO GO TO THE RESTROOM. FOR EGD AND COLONOSCOPY TOMR 12/27/2022 IN AM CONSENT SIGNED, ALL BOWEL CLEANSE=ING PREPARATION DONE AND WELL TOLERATED BY THE PATIENT. NO S/S OF PAIN OR SHORTNESS OF BREATH AT THIS TIME. KEPT BED ON LOWER LOCKED POSITION, KEPT SIDE RAILS UP X 2 ALL THE TIME. KEPT CALL LIGHT WITHIN AT REACH. WILL CONTINUE TO MONITOR.
[2022-12-26] MEDS: LINZESS 72 MCG PO SCH (22:04)
[2022-12-27] VITALS: BP 125/52
[2022-12-27] MEDS: MORPHINE SULFATE INJ 2 MG/ML DISP.SYRIN IV PRN (00:39)
[2022-12-27 06:24] LABS: EOSINOPHILS % (AUTO) 1.8 % (0.0-6.0); HEMATOCRIT 24 % (33-45); HEMOGLOBIN 7.8 g/dL (11.5-14.8); LYMPHOCYTES # (AUTO) 2.3 K/uL (0.8-4.8); LYMPHOCYTES % (AUTO) 45.9 % (20.0-44.0); MEAN CORPUSCULAR HGB CONC 32 g/dl (31.0-36.0); MEAN CORPUSCULAR VOLUME 80 fL (82-100); MONOCYTES # (AUTO) 0.5 K/uL (0.1-1.30); MONOCYTES % (AUTO) 9.7 % (2.0-12.0); NEUTROPHILS # (AUTO) 2.1 K/uL (1.8-8.9); NEUTROPHILS % (AUTO) 41.6 % (43.0-81.0); PLATELET COUNT (AUTO) 246 K/uL (150-450); RED BLOOD CELL COUNT(AUTO) 3.06 MIL/uL (4.0-5.2); WHITE BLOOD COUNT (AUTO) 5.1 K/uL (4.3-11.0)
--- NOTE | 2022-12-27 06:36 | NUR ---
PUNCH PRESS SETTER CLOSING NOTES PATIENT IN BED, ON MODERATE HIGH BACK REST POSITION. ON ROOM AIR AND TOLERATING WELL. A/O X 4 AMHARIC SPEAKING BUT ABLE TO UNDERSTAND SPANISH. PATIENT AMBULATE WITH CANE AND ASSISTANCE. CONTINENT AND ABLE TO GO TO THE RESTROOM. FOR EGD AND COLONOSCOPY TOMR 12/27/2022 IN AM CONSENT SIGNED AND VERIFIED, WITH IV ACCESS AT RIGHT HAND #20G WITH NS AT 75ML/HR INFUSING WELL.ALL BOWEL CLEANSING PREPARATION DONE AND WELL TOLERATED BY THE PATIENT.PATIENT ABLE TO SLEEP AT AROUND AM. ALL DUE MEDICATIONS GIVEN ALL NEEDS ATTENDED.PATIENT MAINTAINED ON NPO SINCE 12AM. NO S/S OF PAIN OR SHORTNESS OF BREATH AT THIS TIME. KEPT BED ON LOWER LOCKED POSITION, KEPT SIDE RAILS UP X 2 ALL THE TIME. KEPT CALL LIGHT WITHIN AT REACH. WILL ENDORSED TO AM SHIFT FOR [place]
--- NOTE | 2022-12-27 07:08 | NUR ---
OPENING NOTE PATIENT AWAKE IN ROOM, ALERT/ORIENTED X 4, PT ABLE TO MAKE NEEDS KNOWN. PATIENT STABLE ON RA, NO S/S OF DISTRESS OR SOB NOTED, BREATHING EVEN AND UNLABORED. PATIENT ON EXTERNAL THEATRE MANAGER READING SINUS RHYTHM, HR: 76. IV ACCESS ON RFA #20G INTACT AND SALINE LOCKED, SAFETY MEASURES IN PLACE: CALL LIGHT WITHIN REACH, SIDE RAILS UP X 2, BED LOCKED IN LOWEST POSITION, BED ALARM ON. WILL CONTINUE TO MONITOR PATIENT
[2022-12-27 07:25] LABS: CALCIUM, SERUM 8.8 mg/dL (8.5-10.1); CREATININE 0.9 mg/dL (0.6-1.3); PHOSPHORUS 3.5 mg/dL (2.5-4.9); POTASSIUM 4.6 mmol/L (3.5-5.1)
[2022-12-27] MEDS ORDERED: ANESTHESIA TRAY IN PYXIS 1 EA TRAY MC ONE (07:36)
[2022-12-27 08:00] VITALS: BP 115/64
--- NOTE | 2022-12-27 08:16 | NUR ---
PATIENT LEFT FOR PROCEDURE IN STABLE CONDITION.
--- NOTE | 2022-12-27 10:10 | NUR ---
PATIENT CAME FROM PROCEDURE, IN STABLE CONDITION,AWAKE, ALERT, ORIENTEDX3 VS- BP-122/44, T-97.5,P-77,R-18,SPO2-100% ON ROOM AIR
[2022-12-27] MEDS: PANTOPRAZOLE 40 MG TABLET.DR PO SCH (10:17)
[2022-12-27] MEDS: Fluoxetine 10 mg capsule PO SCH (10:17)
[2022-12-27] MEDS: clonazePAM 0.5 MG TABLET PO SCH ×2 (10:18→16:15)
--- NOTE | 2022-12-27 10:27 | NUR ---
INFORMED DR MORAN REGARDING SURGEONS NOTE RE: PATIENT CAN EAT REGULAR FOOD.
--- NOTE | 2022-12-27 15:14 | NUR ---
COVID TEST DONE
[2022-12-27] MEDS: ACETAMINOPHEN 325 MG TABLET PO PRN (15:31)
[2022-12-27 16:00] VITALS: BP 120/50
--- NOTE | 2022-12-27 17:37 | NUR ---
ASKED DR MORAN TO WRITE A DISCHARGE ORDER.
--- NOTE | 2022-12-27 18:47 | NUR ---
REPORT GIVEN TO EDUARD DONATO AT [facility] IN ROOM #35. BELONGINGS FROM NURSING OFFICE WERE RETURN TO THE PATIENT. INFORMED HRATCH COUSIN OF THE PATIENT IS BEING DISCHARGE TONIGHT. TRANSPORT IS SET WITH [facility], DESIZING MACHINE BACK TENDER TIME IS 19:00 TONIGHT.
--- NOTE | 2022-12-27 19:40 | NUR ---
DISCHARGE NOTES PATIENT WAS PICKED UP BY HER COUSIN AND WILL BE GOING TO [facility]. HOME MEDICATIONS FROM THE PHARMACY AND DISCHARGE PACKET WAS GIVEN TO THE PATIENT, RFA IV #20G TAKEN OUT, VSS.
== END 2022-12-27 21:07 | DRG 391 ==
LOC: ER 07:49 → TELE1 13:41 → MEDSG1 12-26 20:47
PROVIDERS: ADMIT Internal Medicine; ATTEND Internal Medicine
PROC: 0DB78ZX Excision of Stomach, Pylorus, Via Natural or Artificial Opening Endoscopic, Diagnostic (ICD-10-PCS; principal; 2022-12-27)
PROC: 0DJD8ZZ Inspection of Lower Intestinal Tract, Via Natural or Artificial Opening Endoscopic (ICD-10-PCS; 2022-12-27)
DX: K44.9 Diaphragmatic hernia without obstruction or gangrene (principal); I21.A1 Myocardial infarction type 2; N17.0 Acute kidney failure with tubular necrosis; E87.1 Hypo-osmolality and hyponatremia; E86.0 Dehydration; E86.1 Hypovolemia; Z20.822 Contact with and (suspected) exposure to COVID-19; K57.30 Diverticulosis of large intestine without perforation or abscess without bleeding; K64.1 Second degree hemorrhoids; K63.89 Other specified diseases of intestine; Z86.73 Personal history of transient ischemic attack (TIA), and cerebral infarction without residual deficits; Z98.890 Other specified postprocedural states; Z88.6 Allergy status to analgesic agent; Z79.82 Long term (current) use of aspirin; Z79.899 Other long term (current) drug therapy; D63.8 Anemia in other chronic diseases classified elsewhere; D50.9 Iron deficiency anemia, unspecified; I70.0 Atherosclerosis of aorta; E11.9 Type 2 diabetes mellitus without complications; L60.1 Onycholysis; M81.0 Age-related osteoporosis without current pathological fracture; M19.90 Unspecified osteoarthritis, unspecified site; I34.0 Nonrheumatic mitral (valve) insufficiency; K59.00 Constipation, unspecified
CPT/HCPCS: 36415; 74246-TC; 80048-TC; 80076-TC; 81001; 82962-TC; 83690-TC; 83735-TC; 84100-TC; 84484-TC; 85025-TC; 87081-TC; 87086-TC; 93307-TC; A4223; G0378; J0461; J2270; J2405; J2704; J3490; J7030; Q9963

== ENCOUNTER 2025-01-15 09:51 | Inpatient (IN) | payer MEDICARE, OTHER ==
[~2025-01-15] VITALS: Ht 149.9 cm; Wt 55.5 kg
[~2025-01-15 09:51] MED LIST changes: +ACET-907 PO; -ASPI-866 PO; -DICL50TA9 PO; +ERGO500093 PO; +FAMO20TA8 PO; +FLUO10CA29 PO; +FOLI0.4T6 PO; +LINA145C PO; +MULT-447 PO; -SENN-261 PO
[2025-01-15] MEDS: IV NS 0.9% 500 ML BAG IV ONE (10:56)
[2025-01-15 10:58] LABS: BASOPHILS % (AUTO) 0.8 % (0.0-2.0); EOSINOPHILS % (AUTO) 0.3 % (0.0-6.0); HEMATOCRIT 37 % (33-45); HEMOGLOBIN 12.5 g/dL (11.5-14.8); LYMPHOCYTES # (AUTO) 1.3 K/uL (0.8-4.8); LYMPHOCYTES % (AUTO) 29.9 % (20.0-44.0); MEAN CORPUSCULAR HEMOGLOBIN 31 PG (26.0-33.0); MEAN CORPUSCULAR HGB CONC 34 g/dl (31.0-36.0); MEAN CORPUSCULAR VOLUME 92 fL (82-100); MONOCYTES # (AUTO) 0.4 K/uL (0.1-1.30); NEUTROPHILS # (AUTO) 2.5 K/uL (1.8-8.9); PLATELET COUNT (AUTO) 199 K/uL (150-450); RED BLOOD CELL COUNT(AUTO) 4.02 MIL/uL (4.0-5.2); RED CELL DISTRIBUTION WIDTH 13.6 % (11.5-15.0); WHITE BLOOD COUNT (AUTO) 4.2 K/uL (4.3-11.0)
[2025-01-15 11:16] LABS: CALCIUM, SERUM 9.8 mg/dL (8.5-10.1); POTASSIUM 4.4 mmol/L (3.5-5.1)
[2025-01-15 11:20] LABS: ALBUMIN 3.9 g/dL (3.4-5.0); BILIRUBIN,DIRECT 0.2 mg/dL (0.0-0.2); BILIRUBIN,TOTAL 0.7 mg/dL (0.2-1.0); TOTAL PROTEIN, SERUM 7.8 g/dL (6.4-8.2)
[2025-01-15 13:22] LABS: APPEARANCE,URINE CLEAR (CLEAR); COLOR,URINE YELLOW (YELLOW)
[2025-01-15 13:23] LABS: BILIRUBIN,URINE NEGATIVE (NEGATIVE); BLOOD, URINE NEGATIVE Ery/uL (NEGATIVE); KETONES,URINE NEGATIVE (NEGATIVE); LEUKOCYTE ESTERASE ,URINE NEGATIVE (NEGATIVE); NITRITE, URINE NEGATIVE (NEGATIVE); PH,URINE 6.5 (5.0-8.0); PROTEIN,URINE NEGATIVE (NEGATIVE); UGLUCOSE NEGATIVE (NEGATIVE); UROBILINOGEN,URINE 0.2 EU/dL (0.2)
[2025-01-15] MEDS ORDERED: Z GUARD REMEDY 4 OZ OINT TP PRN (14:30)
[2025-01-15] MEDS ORDERED: ACETAMINOPHEN W/ CODEINE#3 1 EA TABLET PO PRN (14:30)
[2025-01-15] MEDS ORDERED: MAGNESIUM HYDROXIDE 30 ML UDC PO PRN (14:30)
[2025-01-15] MEDS ORDERED: ONDANSETRON HCL/PF 4 MG/2 ML VIAL IVP PRN (14:30)
[2025-01-15] MEDS ORDERED: MAG HYDROX/AL HYDROX/SIMETH 30 ML UDC PO PRN (14:30)
[2025-01-15] MEDS: DICLOFENAC TOPICAL 100 GM TUBE TP SCH (17:00)
[2025-01-15 18:05] VITALS: O2SAT 99
[2025-01-15] MEDS: clonazePAM 0.5 MG TABLET PO SCH (18:16)
[2025-01-15] MEDS ORDERED: DIVA500T54 PO (19:52)
[2025-01-15 20:00] VITALS: BP 101/55; TEMP 98.1; O2SAT 95
[2025-01-15] MEDS: HYDROCODONE/APAP 5/325MG TABLET PO PRN (20:36)
[2025-01-15] MEDS: DIVALPROEX SODIUM 250 MG TABLET.DR PO SCH (21:17)
[2025-01-16] MEDS: IV NS 0.9% 1,000 ML IV PRN (01:03)
[2025-01-16] MEDS: ACETAMINOPHEN 325 MG TABLET PO PRN (05:53)
[2025-01-16 07:32] LABS: BASOPHILS % (AUTO) 0.8 % (0.0-2.0); EOSINOPHILS % (AUTO) 0.9 % (0.0-6.0); HEMATOCRIT 35 % (33-45); HEMOGLOBIN 12.1 g/dL (11.5-14.8); LYMPHOCYTES # (AUTO) 2.1 K/uL (0.8-4.8); LYMPHOCYTES % (AUTO) 43.3 % (20.0-44.0); MEAN CORPUSCULAR HEMOGLOBIN 32 PG (26.0-33.0); MEAN CORPUSCULAR HGB CONC 35 g/dl (31.0-36.0); MEAN CORPUSCULAR VOLUME 92 fL (82-100); MONOCYTES # (AUTO) 0.5 K/uL (0.1-1.30); MONOCYTES % (AUTO) 10.8 % (2.0-12.0); NEUTROPHILS # (AUTO) 2.1 K/uL (1.8-8.9); NEUTROPHILS % (AUTO) 44.2 % (43.0-81.0); PLATELET COUNT (AUTO) 182 K/uL (150-450); RED BLOOD CELL COUNT(AUTO) 3.79 MIL/uL (4.0-5.2); RED CELL DISTRIBUTION WIDTH 13.9 % (11.5-15.0); WHITE BLOOD COUNT (AUTO) 4.8 K/uL (4.3-11.0)
[2025-01-16 08:05] LABS: CALCIUM, SERUM 9.1 mg/dL (8.5-10.1); CREATININE 1.1 mg/dL (0.6-1.3); MAGNESIUM 2.1 mg/dL (1.8-2.4); PHOSPHORUS 3.7 mg/dL (2.5-4.9); POTASSIUM 4.5 mmol/L (3.5-5.1)
[2025-01-16 08:06] LABS: THYROID STIMULATING HORMONE 2.13 uIU/mL (0.358-3.74)
[2025-01-16] MEDS: MULTIVITAMINS,THERAGRAN 1 UDTAB TABLET PO SCH (08:24)
[2025-01-16] MEDS: FAMOTIDINE (20 MG) 20 MG TABLET PO SCH (08:25)
[2025-01-16] MEDS: Fluoxetine 10 mg capsule PO SCH (08:25)
[2025-01-16] MEDS: FOLIC ACID 1 MG TABLET PO SCH (08:25)
[2025-01-16] MEDS ORDERED: [UNRECOGNIZED DRUG - OTHER] PO SCH (09:00)
[2025-01-16 16:00] VITALS: BP 119/64; TEMP 98.4; O2SAT 97
[2025-01-16 20:00] VITALS: BP 123/63; TEMP 97.5; O2SAT 95
[2025-01-17 07:12] LABS: CALCIUM, SERUM 9.3 mg/dL (8.5-10.1)
[2025-01-17 07:30] VITALS: BP 112/56; TEMP 97.7; O2SAT 98
[2025-01-21] MEDS ORDERED: ERGOCALCIFEROL (VITAMIN D 2) 50,000 UNIT CAPSULE PO SCH (16:00)
== END 2025-01-17 12:00 | disposition home health service (06) | DRG 641 ==
LOC: ER 09:54 → MED 16:34
PROVIDERS: ADMIT Nurse Practitioner Acute Care; ATTEND Nurse Practitioner Acute Care
DX: E86.0 Dehydration (principal); K44.9 Diaphragmatic hernia without obstruction or gangrene; R53.1 Weakness; K58.9 Irritable bowel syndrome, unspecified; F41.9 Anxiety disorder, unspecified; G89.29 Other chronic pain; K21.9 Gastro-esophageal reflux disease without esophagitis; F32.A Depression, unspecified; Z86.73 Personal history of transient ischemic attack (TIA), and cerebral infarction without residual deficits; R10.9 Unspecified abdominal pain; K42.9 Umbilical hernia without obstruction or gangrene; I70.0 Atherosclerosis of aorta; E87.1 Hypo-osmolality and hyponatremia
CPT/HCPCS: 36415; 80048-TC; 80061-TC; 80076-TC; 83690-TC; 83735-TC; 84100-TC; 84443-TC; 85025-TC; 87081-TC; 87086-TC; 97110-TC; 97116-TC; 97530-TC; 97535-TC; A4223; G0378; J7030; J7040